=== PATIENT | male | born 1985 | race Two or more races ===

== ENCOUNTER 2023-04-10 04:33 | Emergency (ER) | payer OTHER ==
[~2023-04-10] VITALS: Ht 182.9 cm; Wt 74.0 kg
[2023-04-10] MEDS ORDERED: ONDANSETRON HCL 4 MG TABLET PO ONE (05:45)
[2023-04-10 06:51] VITALS: TEMP 98.2
[2023-04-10] MEDS ORDERED: HYDROGEN PEROXIDE 118 ML SOLUTION TP ONE (07:30)
[2023-04-10 07:40] LABS: BASOPHILS % (AUTO) 0.5 % (0.0-2.0); EOSINOPHILS % (AUTO) 1.3 % (1.0-6.0); HEMATOCRIT 38.4 % (41-53); HEMOGLOBIN 13.5 g/dL (13.5-17.5); LYMPHOCYTES # (AUTO) 3.7 K/uL (1.0-4.8); LYMPHOCYTES % (AUTO) 44.6 % (22.0-44.0); MEAN CORPUSCULAR HEMOGLOBIN 30.9 pg (26.0-34.0); MEAN CORPUSCULAR VOLUME 88 fL (80-100); MONOCYTES # (AUTO) 0.6 K/uL (0.1-1.0); MONOCYTES % (AUTO) 6.8 % (2.0-9.0); NEUTROPHILS # (AUTO) 3.9 K/uL (1.8-7.7); NEUTROPHILS % (AUTO) 46.8 % (40.0-70.0); PLATELET COUNT (AUTO) 284 K/uL (150-450); RED BLOOD CELL COUNT(AUTO) 4.35 MIL/uL (4.50-5.90); RED CELL DISTRIBUTION WIDTH 13.7 % (11.5-14.5); WHITE BLOOD COUNT (AUTO) 8.3 K/uL (4.5-11.0)
[2023-04-10] MEDS ORDERED: HYDR-4723 PO (07:52)
[2023-04-10 08:04] LABS: LACTIC ACID 0.6 mmol/L (0.4-2.0)
[2023-04-10 08:09] LABS: ANION GAP 10 mmol/L (8-16); CALCIUM, TOTAL 9.1 mg/dL (8.8-10.5); CARBON DIOXIDE 29 mmol/L (22-29); CHLORIDE 104 mmol/L (98-107); CREATININE 0.95 mg/dL (0.60-1.30); GLOMERULAR FILTR. RATE CALC > 60 mL/min (>60); GLUCOSE,RANDOM 109 mg/dL (70-110); POTASSIUM 3.1 mmol/L (3.5-5.1); SODIUM SERUM 143 mmol/L (136-145); UREA NITROGEN, BLOOD 8 mg/dL (7-18)
[2023-04-10 08:15] LABS: ALANINE AMINOTRANSFERASE 13 U/L (12-78); ALBUMIN 3.9 g/dL (3.4-5.0); ALKALINE PHOSPHATASE 56 U/L (46-116); ASPARTATE AMINOTRANSFERASE 17 U/L (15-37); BILIRUBIN,TOTAL 0.3 mg/dL (0.1-1.0); TOTAL PROTEIN, SERUM 7.3 g/dL (6.4-8.2)
[2023-04-10] MEDS ORDERED: POTASSIUM CHLORIDE 10% 40 MEQ/30 ML LIQUID UDCUP PO ONE (08:30)
[2023-04-10 08:34] VITALS: BP 151/80; PULSE 71; RESP 16
[2023-04-10] MEDS ORDERED: IBUP-1554 PO ×2 (08:37→14:07)
[2023-04-10] MEDS ORDERED: GABA-1181 PO ×2 (08:37→14:07)
== END 2023-04-10 08:50 | disposition home or self-care (01) ==
LOC: EMS 04:35
DX: J34.0 Abscess, furuncle and carbuncle of nose (principal); E87.6 Hypokalemia; F41.9 Anxiety disorder, unspecified; I10 Essential (primary) hypertension; F12.90 Cannabis use, unspecified, uncomplicated; Z88.0 Allergy status to penicillin; Z88.8 Allergy status to other drugs, medicaments and biological substances
CPT/HCPCS: 99284; 80053; 83605; 85025; 36415; Q0162